=== PATIENT | male | born 1950 | race Caucasian/White ===

== ENCOUNTER → 2021-03-29 | Outpatient (CLI) | payer OTHER ==
[~2021-03-29] MED LIST: ASPIRIN325; BP MED; CRESTOR10 MG PO; IMDUR 30 MG TAB30 M1 PO
== END ==
LOC: SJCVC 14:36
PROVIDERS: ATTEND Internal Medicine
DX: R94.31 Abnormal electrocardiogram [ECG] [EKG] (principal); R07.2 Precordial pain; Z13.220 Encounter for screening for lipoid disorders

== ENCOUNTER → 2021-04-01 | Outpatient (CLI) | payer OTHER ==
[~2021-04-01] MED LIST changes: +ASA81BEC PO; +BENAZEPRIL HCL20 MG PO; +CLOPIDOGREL75 MG PO; +DAILY VITE1 EAC1 PO; +FISH OIL 1,001000 M3 PO; +GLUCOSAMINE &1 EACH PO; +METOPROLOL SUCC25 M1 PO; +NITROGLYCERIN0.4 MG SUBLING; +TURMERIC500 M2 PO; +ZANTAC-360 (FAM10 MG PO
== END ==
LOC: SJCVCIMAG 13:34
PROVIDERS: ATTEND Internal Medicine
DX: I08.3 Combined rheumatic disorders of mitral, aortic and tricuspid valves (principal); R07.2 Precordial pain; E78.5 Hyperlipidemia, unspecified; Z72.89 Other problems related to lifestyle; I10 Essential (primary) hypertension; I25.10 Atherosclerotic heart disease of native coronary artery without angina pectoris; R07.89 Other chest pain

== ENCOUNTER → 2021-04-02 | Outpatient (CLI) | payer OTHER ==
[~2021-04-02] VITALS: Ht 170.2 cm; Wt 72.0 kg
[2021-04-02 10:35] VITALS: BP 128/65
[2021-04-02 14:06] LABS: BE(vivo) -1.4 mmol/L (-2 to +3); BE(vivo) 1.5 mmol/L (-2 to +3); HCO3 25.3 mmol/L (22.0-26.0); HCO3 27.8 mmol/L (22.0-26.0); PCO2 50.4 mmHg (35.0-45.0); PCO2 VENOUS 50.8 mmHg (41.0-51.0); PO2 160.1 mmHg (80.0-100.0); PO2 VENOUS 48.2 mmHg (35.0-45.0); pH 7.359 (7.360-7.450)
[2021-04-02 17:48] LABS: URINE BILIRUBIN NEGATIVE (Negative); URINE BLOOD NEGATIVE (Negative); URINE CLARITY CLEAR; URINE COLOR YELLOW; URINE GLUCOSE-RANDOM* NEGATIVE (Negative); URINE KETONES NEGATIVE (Negative); URINE LEUKOCYTES-REFLEX NEGATIVE (Negative); URINE NITRITE-REFLEX NEGATIVE (Negative); URINE PROTEIN (DIPSTICK) NEGATIVE (Negative); URINE UROBILINOGEN 0.2 E.U./dl (0.2-1.0)
--- NOTE | 2021-04-03 07:57 | HC ---
[facility] [place] [address] CONSULTATION Name: JU[place] KAHN Room #: REG [facility].#: [id number] Admission: 04/02/21 Attend Phys: Stefan Jha MD, Discharge: Date of : 50 Report #: [id number] THIS REPORT FOR: cc: Miguel Lopez,Miguel Jones,[place] Garrett MD ~ DATE OF SERVICE: 04/02/2021 We were asked by Dr. Soliz to see the patient. HISTORY OF PRESENT ILLNESS: The patient is a 70-year-old patient of Dr. Jha with longstanding heart murmur. The patient presents with new onset angina with exertion. The patient has a history of coronary artery disease with stents placed at the center point approximately 2007. Current cardiac echo demonstrates an aortic valve area of 0.7 cm2 with a peak aortic gradient of 72 mmHg and a mean of 46. Left ventricular ejection fraction approximately 50%. Today arteriography demonstrated total occlusion of the right coronary artery. This appears to have been stented in the past. There was also in-stent stenosis and a LAD that measures approximately 60% and a 70% circumflex stenosis. No ventriculogram was done. History is significant for hypertension and hyperlipidemia. The patient denies diabetes mellitus. The patient has a history of Hodgkin's lymphoma, treated in 1982 with 47 radiation treatments. This appears to have been delivered to the neck. The patient also has had right carotid endarterectomy. The other focus of radiation was the left axilla. The patient states that the chest itself was not treated. The patient has also had multiple melanoma resections, but no current disease is now. ALLERGIES: THE PATIENT STATES HE IS ALLERGIC TO BENADRYL, WHICH CAUSES DIZZINESS. CURRENT MEDICATIONS: The patient takes Imdur, Crestor and Plavix was prescribed, but the patient states he is not taking it currently. SOCIAL HISTORY: The patient lives in [place]. He works as an independent long service. He is a never smoker. REVIEW OF SYSTEMS: GENERAL: Denies fever or chills. EYES: Denies vision change. The patient does not wear glasses. [facility] [address] [place] [address] CONSULTATION Name: JUAN KAHN ESEQUIEL Room #: REG [facility]#: [id number] Admission: 04/02/21 Attend Phys: Stefan Jha MD, Discharge: Date of : 50 Report #: [id number] HEENT: Denies headache, hearing problems. CARDIAC: As mentioned angina, also shortness of breath with exertion. RESPIRATORY: Denies cough, hemoptysis. GASTROINTESTINAL: Denies abdominal pain, nausea, vomiting. GENITOURINARY: Denies urgency, frequency. MUSCULOSKELETAL: No bone or joint pain. SKIN: No rash or infection. NEUROLOGIC: No motor or sensory dysfunction. HEMATOLOGIC: No bruisability or bleeding. ENDOCRINE: No goiter, no tremor. PHYSICAL EXAMINATION: GENERAL: The patient is lying in bed, status post cardiac catheterization. VITAL SIGNS: Blood pressure 132/64, heart rate 62. HEENT: No scleral icterus. No arcus. NECK: No mass. Bilateral transmitted bruits are audible. Skin in the right neck is somewhat leathery and right carotid incision is noted. CHEST: Clear to auscultation. HEART: Rhythm regular, loud aortic systolic murmur. ABDOMEN: Soft, no mass. EXTREMITIES: No clubbing, cyanosis or edema. No obvious varicosities. VASCULAR: 2+ dorsalis pedis pulses. SKIN: No rash or infection. NEUROLOGIC: No motor or sensory dysfunction. MUSCULOSKELETAL: No bone or joint asymmetry or deformity. PSYCHIATRIC: Oriented and appropriate shows insight into problem and is a pleasant fellow. ASSESSMENT AND PLAN: The patient has important aortic valve stenosis and 3-vessel coronary artery disease. I have recommended coronary artery bypass surgery. The risks and details of this were discussed. Risks include, but are not limited to bleeding, infection, anesthesia risks, heart and lung problems, stroke and . Options and alternatives were reviewed. Mechanical and biologic devices were compared and contrasted. The patient understands our recommendation for biological device and agrees. We will make sure the patient is off Plavix prior to surgery and schedule appropriately. <ELECTRONICALLY SIGNED> By: [place] Wei MD 04/03/21 0757 1421 0015 [place] Wei MD /nt
--- NOTE | 2021-04-03 08:57 | CATHLAB ---
[facility] [address] INVASIVE PROCEDURE REPORT Name: JUAN KAHN Room #: REG ERNEST[facility] Brown.#: [id number] Admission: 04/02/21 Attend Phys: Stefan Jha MD, Discharge: Date of : 50 Report #: [id number] THIS REPORT FOR: cc: Miguel Lopez Gregory DO Park, Jin S. MD ~ APPROVED REPORT Study performed: 04/02/2021 12:54:49 Patient Details Patient Status: Out-Patient Room #: The patient is a 70 year-old male Event Personnel Vasiliy Soliz Manager Gaming, Sumaya Lobo RTR, RELINER Monitor, Cassandra Darden RTR ScrubEnmanuel Dexter RN prepress specialist Performed Art Access - R femoral artery* Alvarez Access - R femoral vein Right and Left Heart Cath w/or w/o Coronarie [id number] [facility] Hemostasis w/ Mynx 48462 Initial Mod Sed Same Phys/QHP Gr5y 106875 83175 Mod Sed Same Phys/QHP Ea 275462 Indication Dyspnea, Unstable angina , Valvular heart disease, Chest pain, Murmur Risk Factors Peripheral Vascular Disease, HypercholesterolemiaPhysical Activity, Coronary Artery DiseaseHypertension Previous Procedures/Diagnoses Previous Vascular Surgery Procedure Narrative The Right Groin^ was infiltrated with subcutaneous anesthesia. A PINNACLE 6FR Sheath #[id number] sheath was inserted into the RFA. Coronary angiography was performed using coronary diagnostic catheters. The right coronary system was accessed and visualized with a JR4 catheter. The left coronary system was accessed and visualized with a JL4 catheter. The left ventricle was accessed and visualized with a 5FR AL1 #[id number] catheter. Left ventricular/Aortic Valve gradient assessed via catheter pullback. Pre-demployment femoral [facility] [address] [place] [address] INVASIVE PROCEDURE REPORT Name: [facility] Room #: REG [facility].#: [id number] Admission: 04/02/21 Attend Phys: Stefan Jha, Discharge: Date of : 50 Report #: [id number] angiogram was performed . Closure device was deployed with a 6 Fr MYNXGRIP 6/7F #[id number]. The patient tolerated the procedure well and there were no complications associated with the procedure. There was no hematoma. Intraoperative Conscious Sedation Sedation start time: 13:48 Case end Time: 14:46 Fentanyl 50 mcg Versed 1 mg Fluoro Time: 9.40 minutes Dose: DAP 4720.20 cGycm2 493 mGy Contrast Type and Amount: Omnipaque 95 ml Diagnostic Cath Left Main The left main artery has mild disease in the distal segment. LAD The LAD is a moderate-sized caliber vessel, traverses the anterior wall and wraps around the apex. The proximal segment is moderately calcified with severe disease. Diagonal 1 This is a small to moderate-sized caliber vessel, originates in the mid LAD segment. Circumflex The left circumflex artery is a severe stenosis in the proximal segment, 80% just after the takeoff of the first OM vessel. OM1 There is a moderate-sized caliber vessel with a severe proximal stenosis. OM2 This is a small to moderate-sized caliber vessel, patent with no flow limiting obstructions. Right Coronary The RCA is a dominant vessel with previous stents in the proximal and mid segments. There is a total occlusion at the ostium of the RCA. The distal branches are filled via collateral circulation from the left coronary artery. Left Ventriculography Left Ventriculography was not performed. Ejection Fraction was 55-60% based off patient's Echocardiogram. Hemodynamics The right atrial mean pressure is 10 mmHg. The right ventricular pressure is 35/6 mmHg. The pulmonary artery pressure is 36/14 mmHg with a mean of 23 mmHg. The mean pulmonary capillary wedge pressure is 14 mmHg. The aortic pressure is 141/65 mmHg with a mean of 94 mmHg. The left ventricular pressure is 176/9 mmHg with a mean of mmHg. The left ventricular end diastolic pressure is 20 mmHg. PaO2 saturation is 80.10 %. Arterial saturation is 97.90 %. The cardiac [facility] [address] [place] [address] INVASIVE PROCEDURE REPORT Name: JUAN KAHN ESEQUIEL Room #: REG Umberto#: [id number] Admission: 04/02/21 Attend Phys: Stefan Jha, Discharge: Date of : 50 Report #: [id number] output using the Lisa method is 6.84 L/min. The cardiac index using the Lisa method is 3.73 L/min/m2. The mean aortic valve gradient is 40.39 mmHg. The aortic valve area is 1.02 cm2. Conclusion 1. There is severe three-vessel coronary artery disease. 2. There is severe aortic stenosis. The LV systolic function is normal. 3. Right-sided hemodynamics as described. 4. Recommend cardiovascular consultation for CABG and aortic valve replacement. 5. Recommend aggressive risk factor management. <ELECTRONICALLY SIGNED> By: Vasiliy Soliz MD 04/03/2157 Vasiliy Soliz MD /INF
== END | disposition home or self-care (01) ==
LOC: CATH 09:22
PROVIDERS: Surgery Vascular Surgery; ATTEND Internal Medicine
DX: R07.9 Chest pain, unspecified (principal); I25.110 Atherosclerotic heart disease of native coronary artery with unstable angina pectoris; I35.0 Nonrheumatic aortic (valve) stenosis; R06.00 Dyspnea, unspecified; I10 Essential (primary) hypertension; E78.00 Pure hypercholesterolemia, unspecified; I73.9 Peripheral vascular disease, unspecified; E78.5 Hyperlipidemia, unspecified; I25.2 Old myocardial infarction; Z98.890 Other specified postprocedural states; Z79.899 Other long term (current) drug therapy; Z85.820 Personal history of malignant melanoma of skin; Z85.72 Personal history of non-Hodgkin lymphomas; Z88.8 Allergy status to other drugs, medicaments and biological substances

== ENCOUNTER → 2021-04-09 | Outpatient (CLI) | payer OTHER | LOC: SJCVCIMAG 06:55 | PROVIDERS: ATTEND Internal Medicine | DX: I65.23 Occlusion and stenosis of bilateral carotid arteries (principal); I35.8 Other nonrheumatic aortic valve disorders; I25.118 Atherosclerotic heart disease of native coronary artery with other forms of angina pectoris; I10 Essential (primary) hypertension; E78.00 Pure hypercholesterolemia, unspecified; E78.5 Hyperlipidemia, unspecified; R10.31 Right lower quadrant pain; I73.9 Peripheral vascular disease, unspecified; R60.0 Localized edema; Z95.1 Presence of aortocoronary bypass graft; Z72.89 Other problems related to lifestyle; Z79.899 Other long term (current) drug therapy; Z95.818 Presence of other cardiac implants and grafts; Z98.890 Other specified postprocedural states; Z88.8 Allergy status to other drugs, medicaments and biological substances ==

== ENCOUNTER → 2021-05-30 | Outpatient (CLI) | payer OTHER ==
[~2021-05-30] MED LIST changes: +ROSUVASTATIN CA20 MG PO
[2021-05-30 13:49] LABS: ABSOLUTE NEUTROPHILS 4.2 thou/uL (1.4-8.2); BASOPHILS 1.2 % (0.0-2.0); EOSINOPHILS 4.5 % (0.0-3.0); HEMATOCRIT 37.5 % (42.0-52.0); HEMOGLOBIN 12.7 gm/dL (14.0-18.0); LYMPHOCYTES 30.9 % (24.0-44.0); MCH 32.2 pg (26.0-34.0); MCV 94.7 fL (80.0-100.0); MONOCYTES 10.9 % (1.0-8.0); PLATELET COUNT 293 thou/uL (150-400); POLYS 52.5 % (36.0-66.0); RBC 3.96 mil/uL (4.50-6.00)
[2021-05-30 14:03] LABS: APTT 28.8 Seconds (24.5-32.8); INR 0.94; PROTIME 10.3 Seconds (10.5-12.1)
[2021-05-30 14:05] LABS: ALBUMIN 3.6 g/dL (3.4-5.0); CALCIUM 9.3 mg/dL (8.5-10.1); POTASSIUM 4.2 mmol/L (3.5-5.1); TOTAL BILIRUBIN 0.4 mg/dL (0.2-1.0); TOTAL PROTEIN 7.5 g/dL (6.4-8.2)
[2021-05-30 14:14] LABS: URINE BILIRUBIN NEGATIVE (Negative); URINE BLOOD NEGATIVE (Negative); URINE CLARITY CLEAR; URINE COLOR YELLOW; URINE GLUCOSE-RANDOM* NEGATIVE (Negative); URINE KETONES NEGATIVE (Negative); URINE LEUKOCYTES-REFLEX NEGATIVE (Negative); URINE NITRITE-REFLEX NEGATIVE (Negative); URINE PROTEIN (DIPSTICK) NEGATIVE (Negative); URINE SPECIFIC GRAVITY 1.015 (1.005-1.035); URINE UROBILINOGEN 0.2 E.U./dl (0.2-1.0)
[2021-05-31 04:06] LABS: GLYCOHEMOGLOBIN (HGB A1C) 5.4 % (4.8-5.6)
--- NOTE | 2021-05-31 07:06 | EKG ---
[place] [address] [address] [facility] [address] [place] [address] ELECTROCARDIOGRAM REPORT Name: JUAN KAHN [id number] Admission: 05/30/21 Attend Phys: [place] Wei MD Discharge: Date of : 50 Report #: [id number] [facility] Test Date: 2021-05-30 Test Time: 13:44:05 Pat Name: JUAN KAHN Department: Room: Gender: Assembler Camper: Abhijit ELIZONDO : 1950 Requested By: [place] Wei Order Number: [id number] MD: Stefan Jha Measurements Intervals [place] Rate: 71 P: 65 [place]: 163 QRS: 34 QRSD: 116 T: 0 QT: 481 QTc: 523 Interpretive Statements Sinus rhythm Probable left atrial enlargement LVH with secondary repolarization abnormality Inferior infarct, age indeterminate No previous ECG available for comparison Electronically Signed On 05-31-2021 7:06:09 PROFESSOR OF ART by Stefan Jha [email or web address] <ELECTRONICALLY SIGNED> By: Stefan Jha MD, [facility] 05/31/21 0706 1344 1344 Stefan Jha MD, FACC /EPI
== END | disposition home or self-care (01) ==
LOC: PAC 12:11
PROVIDERS: ATTEND Surgery Vascular Surgery
DX: R94.31 Abnormal electrocardiogram [ECG] [EKG] (principal); F03.90 Unspecified dementia, unspecified severity, without behavioral disturbance, psychotic disturbance, mood disturbance, and anxiety; I25.10 Atherosclerotic heart disease of native coronary artery without angina pectoris; R07.9 Chest pain, unspecified

== ENCOUNTER 2021-06-11 09:41 | Inpatient (IN) | payer OTHER ==
[~2021-06-11] VITALS: Ht 177.8 cm; Wt 71.6 kg
[2021-06-20] VITALS (35 sets, daily range): BP systolic 85–149; BP diastolic 49–76
[2021-06-20 13:43] LABS: HEMATOCRIT 24.9 % (42.0-52.0); HEMOGLOBIN 8.3 gm/dL (14.0-18.0); MCH 31.2 pg (26.0-34.0); MCHC 33.2 g/dL (28.0-37.0); RBC 2.65 mil/uL (4.50-6.00); RDW 13.2 % (10.5-14.5); WBC 14.8 thou/uL (4.0-11.0)
[2021-06-20 14:03] LABS: APTT 30.5 Seconds (24.5-32.8); INR 1.47; PROTIME 15.7 Seconds (10.5-12.1)
[2021-06-20 14:35] LABS: POC BE 4 mmol/L (-2.0 to +3.0); POC CA IONIZED 4.1 mg/dL (4.5-5.3); POC GLUCOSE 131 mg/dL (70-99); POC HCO3 26.2 mmol/L (22.0-26.0); POC HEMOGLOBIN 9.5 g/dL (14.0-18.0); POC POTASSIUM 4.6 mmol/L (3.5-5.1); POC SODIUM 140 mmol/L (136-145); POC pCO2 31.1 mmHg (35.0-45.0); POC pH 7.533 (7.360-7.450)
[2021-06-20 14:35] LABS: POC BE 4 mmol/L (-2.0 to +3.0); POC CA IONIZED 4.5 mg/dL (4.5-5.3); POC GLUCOSE 168 mg/dL (70-99); POC HCO3 26.7 mmol/L (22.0-26.0); POC HEMOGLOBIN 9.2 g/dL (14.0-18.0); POC POTASSIUM 4.4 mmol/L (3.5-5.1); POC SODIUM 140 mmol/L (136-145); POC pCO2 31.3 mmHg (35.0-45.0)
[2021-06-20 14:35] LABS: POC BE 2 mmol/L (-2.0 to +3.0); POC CA IONIZED 4.8 mg/dL (4.5-5.3); POC GLUCOSE 123 mg/dL (70-99); POC HCO3 26.4 mmol/L (22.0-26.0); POC HEMOGLOBIN 11.2 g/dL (14.0-18.0); POC SODIUM 140 mmol/L (136-145); POC pCO2 41.7 mmHg (35.0-45.0)
[2021-06-20 14:35] LABS: POC BE 5 mmol/L (-2.0 to +3.0); POC CA IONIZED 4.5 mg/dL (4.5-5.3); POC GLUCOSE 152 mg/dL (70-99); POC HCO3 28.1 mmol/L (22.0-26.0); POC HEMOGLOBIN 9.9 g/dL (14.0-18.0); POC POTASSIUM 4.3 mmol/L (3.5-5.1); POC SODIUM 141 mmol/L (136-145); POC pCO2 34.9 mmHg (35.0-45.0); POC pH 7.514 (7.360-7.450)
[2021-06-20 14:35] LABS: POC BE 5 mmol/L (-2.0 to +3.0); POC CA IONIZED 4.9 mg/dL (4.5-5.3); POC GLUCOSE 107 mg/dL (70-99); POC HCO3 28.2 mmol/L (22.0-26.0); POC HEMOGLOBIN 11.2 g/dL (14.0-18.0); POC POTASSIUM 3.9 mmol/L (3.5-5.1); POC SODIUM 139 mmol/L (136-145); POC pCO2 38.2 mmHg (35.0-45.0); POC pH 7.477 (7.360-7.450)
[2021-06-20 14:36] LABS: POC BE 2 mmol/L (-2.0 to +3.0); POC CA IONIZED 4.7 mg/dL (4.5-5.3); POC GLUCOSE 158 mg/dL (70-99); POC HCO3 26.6 mmol/L (22.0-26.0); POC HEMOGLOBIN 9.5 g/dL (14.0-18.0); POC POTASSIUM 3.5 mmol/L (3.5-5.1); POC SODIUM 142 mmol/L (136-145); POC pCO2 41.6 mmHg (35.0-45.0); POC pH 7.414 (7.360-7.450)
[2021-06-20 14:36] LABS: POC BE -2 mmol/L (-2.0 to +3.0); POC CA IONIZED 5.1 mg/dL (4.5-5.3); POC GLUCOSE 120 mg/dL (70-99); POC HCO3 22.8 mmol/L (22.0-26.0); POC HEMOGLOBIN 9.9 g/dL (14.0-18.0); POC POTASSIUM 3.3 mmol/L (3.5-5.1); POC SODIUM 143 mmol/L (136-145); POC pCO2 36.7 mmHg (35.0-45.0); POC pH 7.402 (7.360-7.450)
[2021-06-20 14:36] LABS: POC BE 3 mmol/L (-2.0 to +3.0); POC CA IONIZED 4.5 mg/dL (4.5-5.3); POC GLUCOSE 130 mg/dL (70-99); POC HCO3 26.6 mmol/L (22.0-26.0); POC HEMOGLOBIN 8.5 g/dL (14.0-18.0); POC POTASSIUM 3.6 mmol/L (3.5-5.1); POC SODIUM 140 mmol/L (136-145); POC pCO2 36.1 mmHg (35.0-45.0); POC pH 7.475 (7.360-7.450)
[2021-06-20 14:36] LABS: POC BE 4 mmol/L (-2.0 to +3.0); POC CA IONIZED 4.6 mg/dL (4.5-5.3); POC GLUCOSE 157 mg/dL (70-99); POC HCO3 27.2 mmol/L (22.0-26.0); POC HEMOGLOBIN 8.8 g/dL (14.0-18.0); POC POTASSIUM 3.7 mmol/L (3.5-5.1); POC SODIUM 141 mmol/L (136-145); POC pCO2 36.4 mmHg (35.0-45.0); POC pH 7.482 (7.360-7.450)
[2021-06-20 14:36] LABS: POC BE 3 mmol/L (-2.0 to +3.0); POC CA IONIZED 5.4 mg/dL (4.5-5.3); POC GLUCOSE 127 mg/dL (70-99); POC HCO3 25.8 mmol/L (22.0-26.0); POC HEMOGLOBIN 7.5 g/dL (14.0-18.0); POC POTASSIUM 3.2 mmol/L (3.5-5.1); POC SODIUM 140 mmol/L (136-145); POC pCO2 31.9 mmHg (35.0-45.0); POC pH 7.516 (7.360-7.450)
[2021-06-20 14:36] LABS: POC BE 3 mmol/L (-2.0 to +3.0); POC CA IONIZED 4.6 mg/dL (4.5-5.3); POC GLUCOSE 146 mg/dL (70-99); POC HCO3 26.8 mmol/L (22.0-26.0); POC HEMOGLOBIN 8.8 g/dL (14.0-18.0); POC POTASSIUM 3.6 mmol/L (3.5-5.1); POC SODIUM 142 mmol/L (136-145); POC pCO2 36.7 mmHg (35.0-45.0); POC pH 7.472 (7.360-7.450)
[2021-06-20 15:07] LABS: HEMATOCRIT 27.9 % (42.0-52.0); HEMOGLOBIN 9.1 gm/dL (14.0-18.0); MCH 30.7 pg (26.0-34.0); MCHC 32.5 g/dL (28.0-37.0); MCV 94.5 fL (80.0-100.0); RBC 2.95 mil/uL (4.50-6.00); RDW 13.2 % (10.5-14.5); WBC 17.7 thou/uL (4.0-11.0)
[2021-06-20 15:21] LABS: BE(vivo) -3.5 mmol/L (-2 to +3); HCO3 19.7 mmol/L (22.0-26.0); PCO2 29.2 mmHg (35.0-45.0); PO2 94.1 mmHg (80.0-100.0); pH 7.447 (7.360-7.450); sO2 97.6 % (92.0-98.0)
[2021-06-20 15:27] LABS: CALCIUM 8.5 mg/dL (8.5-10.1); CREATININE 0.9 mg/dL (0.7-1.3); MAGNESIUM 2.3 mg/dL (1.8-2.4); POTASSIUM 3.6 mmol/L (3.5-5.1)
[2021-06-20 15:30] LABS: APTT 32.2 Seconds (24.5-32.8); INR 1.19; PROTIME 12.9 Seconds (10.5-12.1)
--- NOTE | 2021-06-20 17:13 | NUR ---
PT ARRIVED FROM THE OR AT 1450 W/ OR TEAM ESCORT, AT THE TIME OF ARRIVAL ALL GTT ARE OFF THE PATIENT, PT'S BELONGINGS IN THE PT'S CLOSET, NO ITEM OF SIGNIFICANT VALUE NOTED SIMPLY PLAIN CLOTHING, PT ARRIVED W/O SEDATION, PT IS CALM AND ALERT AND WAKING UP SLOWLY, ALL MEDICATIONS ADMINISTERED IN TIMELY MANNER, PT'S CALLED AND WAS REPORTED TO THE RN BY ANOTHER STAFF THAT SHE WILL ARRIVE TOMORROW MORNING. GOAL FOR THE EVENING IS TO AWAKEN THE PATIENT AND SAFELY EXTUBATE WHEN DEEMED APPROPERIATE.
[2021-06-20 19:14] LABS: CALCIUM 8.3 mg/dL (8.5-10.1); CREATININE 1.1 mg/dL (0.7-1.3); POTASSIUM 3.8 mmol/L (3.5-5.1)
[2021-06-20 23:35] LABS: BE(vivo) -4.8 mmol/L (-2 to +3); HCO3 20.4 mmol/L (22.0-26.0); PCO2 38.1 mmHg (35.0-45.0); PO2 124.1 mmHg (80.0-100.0); pH 7.346 (7.360-7.450); sO2 98.3 % (92.0-98.0)
[2021-06-21] VITALS (28 sets, daily range): BP systolic 78–126; BP diastolic 49–72
--- NOTE | 2021-06-21 02:23 | NUR ---
2300: Pt placed on CPAP, doing well at this time 2345: Pt did well on CPAP trial, met extubation parameters. Pt extubated at 2345 and placed on 5 L [place] 0000: Pt heart rate dropped to 57-58, SBP <90; Amiodorone and Cardene turned off 0200: SBP 88-90 per arterial line, CVP 16. 250 cc of 5% albumin given.
[2021-06-21 06:15] LABS: HEMATOCRIT 29.8 % (42.0-52.0); HEMOGLOBIN 9.7 gm/dL (14.0-18.0); MCH 30.9 pg (26.0-34.0); MCHC 32.6 g/dL (28.0-37.0); MCV 94.8 fL (80.0-100.0); RBC 3.15 mil/uL (4.50-6.00); RDW 13.4 % (10.5-14.5); WBC 12.2 thou/uL (4.0-11.0)
[2021-06-21 06:45] LABS: CALCIUM 8.2 mg/dL (8.5-10.1); CREATININE 1.3 mg/dL (0.7-1.3); MAGNESIUM 2.4 mg/dL (1.8-2.4); POTASSIUM 4.2 mmol/L (3.5-5.1)
--- NOTE | 2021-06-21 07:41 | EKG ---
[address] [place] [address] ELECTROCARDIOGRAM REPORT Name: JUAN KAHN ESEQUIEL Room #: 250-P ADM IN M.R.#: [id number] Admission: 06/20/21 Attend Phys: [place] Wei MD Discharge: Date of : 50 Report #: [id number] [facility] Test Date: 2021-06-20 Test Time: 17:20:06 Pat Name: JUAN KAHN Department: Room: 250 Gender: M Log Preparer: FSCHWALBE : 1950 Requested By: Wicho Bailey Order Number: [id number] MD: Stefan Jha Measurements Intervals [place] Rate: 73 P: 64 [place]: 158 QRS: 68 QRSD: 100 T: 11 QT: 433 QTc: 478 Interpretive Statements Sinus rhythm Borderline prolonged QT interval Compared to ECG 05/30/2021 13:44:05 Left ventricular hypertrophy no longer present Early repolarization no longer present Electronically Signed On 06-21-2021 7:41:24 PATHOLOGY SECRETARY/TRANSCRIPTIONIST by Stefan Jha [email or web address] <ELECTRONICALLY SIGNED> By: Stefan Jha MD, [facility] 06/21/21 0741 1720 1720 [place] Jha MD, FACC /EPI
--- NOTE | 2021-06-21 07:44 | EKG ---
[address] [place] [address] ELECTROCARDIOGRAM REPORT Name: JUAN KAHN Room #: 250-P ADM IN M.R.#: [id number] Admission: 06/20/21 Attend Phys: [place] Wei MD Discharge: Date of : 50 Report #: [id number] [facility] Test Date: 2021-06-21 Test Time: 06:53:43 Pat Name: JUAN KAHN Department: Room: 250 P Gender: M Board Hammer Operator: TIMMY : 1950 Requested By: Wicho Bailey Order Number: [id number] MD: Stefan Jha Measurements Intervals [place] Rate: 67 P: 74 [place]: 149 QRS: 68 QRSD: 100 T: 37 QT: 470 QTc: 497 Interpretive Statements Sinus rhythm J point elevation precordail leads Baseline wander in lead(s) V5 Compared to ECG 06/20/2021 17:20:06 No significant changes Electronically Signed On 06-21-2021 7:44:35 THIN FILM TECHNICIAN by Stefan Jha [email or web address] <ELECTRONICALLY SIGNED> By: Stefan Jha MD, [facility] 06/21/21 0744 0653 0653 Stefan Jha MD, FACC /EPI
--- NOTE | 2021-06-21 08:17 | NUR ---
Nutrition: POD 1 CABG x 3, AVR. Consult received. RD to followup when out of ICU and closer to D/C to determine education needs.
[2021-06-22] VITALS (65 sets, daily range): BP systolic 78–139; BP diastolic 38–73
[2021-06-22 04:16] LABS: HEMATOCRIT 27.7 % (42.0-52.0); HEMOGLOBIN 8.9 gm/dL (14.0-18.0); MCH 30.9 pg (26.0-34.0); MCHC 32.3 g/dL (28.0-37.0); MCV 95.7 fL (80.0-100.0); RBC 2.89 mil/uL (4.50-6.00); RDW 13.5 % (10.5-14.5); WBC 16.3 thou/uL (4.0-11.0)
[2021-06-22 04:42] LABS: CALCIUM 8.5 mg/dL (8.5-10.1); CREATININE 1.4 mg/dL (0.7-1.3); POTASSIUM 3.8 mmol/L (3.5-5.1)
--- NOTE | 2021-06-22 17:03 | O ---
[facility] [place] [address] OPERATIVE REPORT Name: JUAN KAHN Room #: 250-P [facility] IN M.R.#: [id number] Admission: 06/20/21 Attend Phys: [place] Wei MD Discharge: Date of : 50 Report #: [id number] THIS REPORT FOR: cc: Miguel Lopez,Miguel Jones,[place] Garrett MD ~ DATE OF SERVICE: 06/20/2021 PREOPERATIVE DIAGNOSIS: Coronary artery disease and aortic valve stenosis. POSTOPERATIVE DIAGNOSIS: Coronary artery disease and aortic valve stenosis. OPERATION: Aortic valve replacement with 21 mm Yvon-Medina bioprosthesis and coronary artery bypass x3 including left internal mammary artery to left anterior descending artery, saphenous vein to posterior descending artery in a Y fashion with the other branch of the Y going to marginal artery and endoscopic harvest, left greater saphenous vein. SURGEON: [place] Wei MD SUPERVISOR EXTRUDING DEPARTMENT: LONG Patel. ANESTHESIA: General. INDICATIONS: The patient is a 70-year-old with calcific aortic stenosis and coronary artery disease. The patient presents with exertional angina. Catheterization demonstrates a high-grade LAD and marginal disease as well as a total occlusion of the right coronary. Aortic valve area was estimated to be 0.7 cm2 by echo. FINDINGS AND TECHNIQUE: After general anesthesia was established, saphenous vein was harvested using an endoscopic approach and prepared for use as a conduit. Exposure was obtained through median sternotomy. Left internal mammary artery was harvested from chest wall. Pericardial well was made. Cannulation sutures were placed. Heparin was given. Aorta was cannulated. Right atrium was cannulated. Cardioplegia needle was positioned in the aortic root. Retrograde cardioplegic catheter was placed to coronary sinus. Cardiopulmonary bypass was established. Aorta was cross-clamped. Antegrade and then retrograde cardioplegia were given. Ice was poured into the pericardial well. The heart was stopped. During electromechanical arrest, the distal anastomoses were performed. An end-to-side anastomosis was made between vein and the largest of the vessels on the diaphragmatic surface, which was the posterior descending. [facility] [address] [place] [address] OPERATIVE REPORT Name: JUAN KAHN ESEQUIEL Room #: 250-P [facility] IN M.R.#: [id number] Admission: 06/20/21 Attend Phys: [place] Wei MD Discharge: Date of : 50 Report #: [id number] cardioplegia was given. Separate segment of vein was sewn in end-to-side fashion to the large marginal artery. Cold cardioplegia was given. Left internal mammary artery was sewn in end-to-side fashion to the left anterior descending artery. Patency of this vessel was checked with the temperature technique and the Doppler. Cold cardioplegia was given. At this point, the aortic valve was replaced. Cardioplegia was given every 15 minutes during this. The aorta itself was very atheromatous and an incision was made approximately 15 mm above the right coronary ostium. The valve was highly calcified. The valve leaflets were excised and the annulus was decalcified. The annulus was riddled with calcium. The cavity of the ventricle was irrigated to remove any loose debris. Interrupted Ethibond sutures were placed through the [place] annulus and then through the sewing ring of a 21 mm device chosen for both annular and the patient's size. The device was lowered into place and sutures were secured with the Cor-Knot device. The aortotomy was closed in 2 layers. Cold cardioplegia was given. One proximal anastomosis was performed between the vein to the marginal artery and the aorta. At this point, warm retrograde cardioplegia was given followed by warm continuous blood through the coronary sinus. When this infusion was complete, crossclamp was removed. De-airing maneuvers were performed. The proximal end of the vein to the posterior descending was then sewn to the side of the vein to the marginal. One proximal was done because of limited area due to calcific atherosclerosis. When all of the proximal anastomoses were complete, flow was reestablished. The anastomoses were inspected and found to be satisfactory. As the patient warmed, cardiac activity resumed. Chest tubes and pacing wires were placed. A marker was placed around the proximal anastomosis. When the patient was warm, he was weaned from cardiopulmonary bypass. Venous cannula was removed. Protamine was given, the aortic cannula was removed. Flows were measured in the bypass grafts. When hemostasis was satisfactory, chest was irrigated with antibiotic solution and then closed in the usual fashion. The patient was taken to the Intensive [address] [address] OPERATIVE REPORT Name: JUAN KAHN ESEQUIEL Room #: 250-P [facility] IN M.R.#: [id number] Admission: 06/20/21 Attend Phys: [place] Wei MD Discharge: Date of : 50 Report #: [id number] Care Unit in good condition having tolerated the procedure well. All counts were reported as correct. <ELECTRONICALLY SIGNED> By: [place] Wei MD 06/22/21 1703 1849 1907 [place] Wei MD /nt
--- NOTE | 2021-06-22 19:07 | NUR ---
PT TOLERATED SITTING IN THE CHAIR FOR 7 HOURS TODAY. PT WAS STARTED ON NS @ 100 FOR INADEQUATE FLUID INTAKE AND LOW BP THIS MORNING. SINCE STARTING FLUIDS, PT BP HAS REMAINED STABLE AND WITHIN NORMAL LIMITS. PT HAS C/O MINIMAL PAIN THROUGHOUT THE DAY, RELIEVED BY MEDICATION AND SLEEPING. AZRA WAS DC'D AROUND 1800 AND PT HAS NOT URINATED YET. URINAL IS AT BEDSIDE AND PT WAS EDUCATED ON ITS USE. PT APPETITE IS POOR, BUT HE HAS REQUESTED AND ATE VANILLA PUDDING AND ICE CREAM THROUGHOUT THE DAY. PT HAS APPLESAUCE AT BEDSIDE IN PLACE OF DINNER. WILL CONTINUE TO FOLLOW PLAN OF CARE.
[2021-06-23] VITALS (36 sets, daily range): BP systolic 84–156; BP diastolic 47–78
--- NOTE | 2021-06-23 13:22 | NUR ---
PT DC'D FROM PLEURAL CHEST TUBE, PACER WIRES, RIGHT IJ INTRODUCER, AND RIGHT RADIAL ARTERIAL LINE THIS MORNING AND AFTERNOON. PT HAS VERY POOR APPETITE AND HAS HAD MINIMAL TO EAT THUS FAR TODAY. PT STILL C/O DIFFICULTY WITH CLEARING SECRETIONS. RT AND THIS RN HAVE EDUCATED PT ON THE USE OF FLUTTER VALVE AT PT'S BEDSIDE TO AID IN CLEARANCE. PT'S DAUGHTER REKHA CALLED AT 0745 THIS MORNING AND THIS RN UPDATED HER ON HIS STATUS AND PLAN OF CARE. PT'S SIGNIFICANT OTHER WAS AT BEDSIDE MOST OF THE MORNING AND AFTERNOON AND ASSISTED WITH TRANSFERRING PT TO CCU AROUND NOON. PT AND S/O WERE GRATEFUL FOR THE CARE RECEIVED IN THIS ICU.
--- NOTE | 2021-06-23 18:18 | NUR ---
PT TO THEN UNIT FROM THE ICU - POST OP OPEN HEART. ORIENTED TO ROOM AND BEDSPACE. PROVIDED WITH RENEA CÁRDENAS PER PT REQUEST. PT WITH MOIST COUGH NOT PRODUCING ANY SPUTUM. PT SEEN BY [facility] THERAPY - UP TO THE BATHROOM. MEDS PER SEP - NO CO'S OF PAIN OR NAUSEA - APPITITE REMAINS POOR. NO CO'S AT THE PRESENT TIME.
[2021-06-24] VITALS: BP 132/73
--- NOTE | 2021-06-24 02:26 | NUR ---
PT RESTING QUIETLY IN ROOM THRU THE NOC, VSS, ENCOURAGED DB AND IS, CONGESTED COUGH, PO MEDS WITH PUDDING, PRN PAIN MEDS GIVEN CHARTED FOR C/O BACK PAIN REPOSITONED WITH PILLOWS FREQUENTLY, VOIDING DRK TRUDY URINE PER URINAL, WILL CON'T TO MONITOR PER PPOC.
[2021-06-24 03:53] LABS: HEMATOCRIT 24.6 % (42.0-52.0); HEMOGLOBIN 8.2 gm/dL (14.0-18.0); MCH 31.5 pg (26.0-34.0); MCHC 33.3 g/dL (28.0-37.0); MCV 94.6 fL (80.0-100.0); RBC 2.6 mil/uL (4.50-6.00); RDW 13.3 % (10.5-14.5); WBC 11.8 thou/uL (4.0-11.0)
[2021-06-24 04:09] LABS: CALCIUM 8.7 mg/dL (8.5-10.1); CREATININE 1.1 mg/dL (0.7-1.3); POTASSIUM 4.3 mmol/L (3.5-5.1)
[2021-06-24 05:06] VITALS: BP 125/56
[2021-06-24 07:20] VITALS: BP 133/79
--- NOTE | 2021-06-24 09:01 | EKG ---
[place] [address] [employer] [facility] [address] ELECTROCARDIOGRAM REPORT Name: JUAN KAHN Room #: 212-P ADM IN M.R.#: [id number] Admission: 06/20/21 Attend Phys: [place] Wei MD Discharge: Date of : 50 Report #: [id number] [facility] Test Date: 2021-06-24 Test Time: 08:16:46 Pat Name: JUAN KAHN Department: Room: 212 P Gender: M Centrifugal Screen Tender: BLACK : 1950 Requested By: Wicho Bailey Order Number: [id number] MD: Sunny Cevallos Measurements Intervals [place] Rate: 79 P: 45 [place]: 160 QRS: 21 QRSD: 104 T: -19 QT: 396 QTc: 455 Interpretive Statements Sinus rhythm Inferoposterior infarct, age indeterminate Baseline wander in lead(s) V3 Compared to ECG 06/21/2021 06:53:43 Inferior Q waves more prominent ST (T wave) deviation no longer present Electronically Signed On 06-24-2021 9:01:42 GUEST ATTENDANT by Sunny Cevallos [email or web address] <ELECTRONICALLY SIGNED> By: Sunny Cevallos MD, [facility] 06/24/21900 5 5 Sunny Cevallos MD, [facility] /EPI
[2021-06-24 11:00] VITALS: BP 114/62
[2021-06-24 14:21] LABS: BF NUCLEATED CELLS 1300 /mm3
[2021-06-24 14:23] LABS: COLOR RED; TOTAL VOLUME 60 mL
[2021-06-24 14:24] LABS: CLARITY CLOUDY
[2021-06-24 15:20] VITALS: BP 103/56
[2021-06-24 16:12] LABS: BF MACROPHAGE 26 %; BF NEUTROPHILS 70 %; SOURCE CHEST
--- NOTE | 2021-06-24 16:43 | NUR ---
PATIENT ADMITTED FOR AORTIC VALVE REPLACEMENT, CABG X 3. CM SPOKE WITH CARE TEAM AND REVIEWED PTS CHART. PT APPEARED A&OX3. CM MET WITH PT THIS DAY. CM ROLE INTRODUCED. PT REPORTED HE LIVES IN HIS "BARN" OR APARTMENT ALONE. HE REPORTS HE HAS NO STEPS INSIDE OR OUTSIDE THE APARTMENT. PT REPORTS HE IS INDEPENDENT WITH ALL MOBILITY AND ADLS. HE REPORTS HE IS RETIRED BUT MOWS 20+ YARDS AND HOPING TO GO BACK TO WORK IN OCTOBER. HE REPORTS NO HH OR OTHER THERAPY FOREIGN STUDENT ADVISER. PT REPORTS HIS GOAL IS TO RETURN TO HIS APARTMENT WHEN MEDICALLY STABLE. HE REPORTS HIS FRIEND AKASH WILL RETURN HOME WITH ON DC AND ASSIST HIM WHEN HE RETURNS HOME SHOULD HE NEED IT. HE REPORTS SHE WILL STAY LONG NEEDED. CM FOLLOWING REGARDING DC PLANNING.
--- NOTE | 2021-06-24 19:41 | NUR ---
Pt was A&0x4, VS stable and afebrile throughout shift. Pt went down for thoracentesis and reported feeling that he was able to breath better afterwards. Pt's pain is well controlled and pt reported only having minimal pain r/t to chronic back pain. Pt worked with cardiac rehab, PT and OT today and was able to sit in chair for an hour. No current concerns. Continue to monitor.
[2021-06-24 20:00] VITALS: BP 106/59
[2021-06-25 04:00] VITALS: BP 118/59
--- NOTE | 2021-06-25 05:22 | NUR ---
ASSESSMENTS CHARTED, MEDS CHARTED GIVEN. PATIENT BACK IN BED AT START OF SHIFT. ALERT AND ORIENTED, STERNAL INCISION TO WOUND VAC. HAD THORACENTESIS YESTERDAY. LEFT FOOT SWOLLEN. VEIN HARVEST SITES HAVE ORIGINAL SURGICAL DRESSINGS. ON 3 LITERS NC. C/O CHRONIC BACK PAIN.
[2021-06-25 07:20] VITALS: BP 135/71
[2021-06-25 11:10] VITALS: BP 117/64
[2021-06-25 12:10] LABS: SOURCE CHEST
[2021-06-25 15:50] VITALS: BP 116/59
--- NOTE | 2021-06-25 18:41 | NUR ---
Pt was A&0x4, VS stable, afebrile throughout shift. Pt worked with PT today and sat in chair for 3 hours. Pt was able to sit for 3 hours on RA; PT said he still needs 3L O2 when ambulating. Pts pain is well controlled. Incisions are clean, dry and intact. No current concerns. Continue to monitor.
[2021-06-25 19:09] VITALS: BP 108/62
--- NOTE | 2021-06-26 03:27 | NUR ---
PT HAS BEEN RESTING IN NO ACUTE DISTRESS.A/OX4.VSS.C/O BACK PAIN THAT WAS CONTROLLED BY PAIN MEDS PRN.S/P CABG W/AVR.SURGICAL STERNAL INCISION WITH WOUND VAC DRESSING,CDI.WOUND VAC TO SUCTION 125MMHG.LEFT LEG HARVEST SITE ETHAN,NO DRAINAGE OR S/SX OF INFECTION NOTED.POSSIBLE DISCHARGE TO HOME IN 1-2 DAYS.WILL CONT TO MONITOR PER POC.
[2021-06-26 04:15] VITALS: BP 126/76
[2021-06-26 07:15] VITALS: BP 113/70
[2021-06-26] MEDS ORDERED: PACERONE 200 M200 M1 PO (09:23)
[2021-06-26 10:23] LABS: HEMOGLOBIN 8.2 gm/dL (14.0-18.0); MCH 32.2 pg (26.0-34.0); MCHC 33.9 g/dL (28.0-37.0); MCV 94.8 fL (80.0-100.0); RBC 2.54 mil/uL (4.50-6.00); RDW 13.2 % (10.5-14.5); WBC 9.9 thou/uL (4.0-11.0)
[2021-06-26] MEDS ORDERED: FERREX 150 PLU1 EAC1 PO (11:07)
[2021-06-26 11:20] VITALS: BP 137/62
--- NOTE | 2021-06-26 13:08 | PATH ---
[facility] [address] [place] [address] PATHOLOGY RPT PROCEDURE Name: AMBROSIO HERRERA ESEQUIEL Room #: 212-P ADM IN M.R.#: [id number] Admission: 06/20/21 Date of : 50 Discharge: Report #: [id number] Path Case #: [id number] [facility] Accession Number: [id number] . 01 Material submitted: . PART A: neck - ANTERIOR CERVICAL LYMPH NODE. Modifiers: anterior PART B: aortic body - AORTIC VALVE . 01 Clinical history: . SEVERE AORTIC STENOSIS ENDOSCOPIC VEIN HARVEST BIOPSY LYMPH NODE PREVENA APPLICATION WOUND VAC PLACEMENT CORONARY ARTERY DISEASE . 02 Diagnosis: A. Soft tissue (anterior cervical lymph node): - Vascularized fibroadipose tissue with small lymphangiectasia identified. . B. Aortic valve leaflets (valve replacement): - Aortic valve leaflets with dense calcified atheromatous change. . (LYNETTE:malik; 06/25/2021) JANENE 06/25/2021 1206 Local . 02 Electronically signed: . Fracisco Malone MD, Pathologist NPI- [id number] . 01 Gross description: . A. The specimen is received in formalin, labeled "Ambrosio Herrera, anterior cervical node". Received is a segment of pink-muñoz lobulated tissue measuring 0.8 x 0.7 x 0.4 cm in greatest dimensions. The specimen is bisected and entirely submitted in cassette A1. . B. The specimen is received in formalin, labeled "Ambrosio Herrera, aortic valve". Received are multiple segments of pale castellon, moderately calcified vascular tissue measuring 3.3 x 3.4 x 0.6 cm in aggregate dimensions. The specimen is submitted representatively in cassette B1, following light decalcification. (CAA; 06/21/2021) QA/[facility] 06/21/2021 1155 Local . 02 Pathologist provided ICD-10: I25.10 . [address] [address] PATHOLOGY RPT PROCEDURE Name: AMBROSIO HERRERA Room #: 212-P [facility] IN ..#: [id number] Admission: 06/20/21 Date of : 50 Discharge: Report #: [id number] Path Case #: [id number] [facility] . [id number], [id number], [id number] Specimen Comment: A courtesy copy of this report has been sent to [phone] Specimen Comment: [phone] Specimen Comment: Report sent to / DR GROSSMAN Specimen Comment: A duplicate report has been generated due to demographic updates. Performed at: 01 [facility] [address] [id number] MD Gus Adams MD Phone: [phone] Performed at: 02 [facility] [address] [id number] MD Fracisco Malone MD Phone: [phone]
[2021-06-26 13:32] VITALS: BP 137/62
--- NOTE | 2021-06-26 14:27 | NUR ---
ASSESSMENT CHARTED - MEDS PER PRATIBHA - YAZMIN DIET AND FLUIDS. NO CO'S OF PAIN OR NAUSEA. PT SEEN BY [facility] THIS AM -- AMBULATED IN THE [facility]. WOUND VAC REMAINS INSITU. CHANGED PER PA TO HOME VAC. PT HOME THIS AFTERNOON. INSTRUCTION RE HOME MKEDS/ CARE AND FOLLOW UP GIVEN TO PATIENT AND SIG OTHER. STATED UNDERSTNDING OF INSTRUCTION GIVEN. LEFT UNIT VIA WHEEL CHAIR HOME VIA PVT VEHICLE WITH SIG OTHER. NO CO'S AT TIME OF D/C.
--- NOTE | 2021-06-27 16:06 | PATH ---
[facility] [address] [place] [address] PATHOLOGY RPT PROCEDURE Name: JUAN KAHN Room #: 212-P [facility] IN M.R.#: [id number] Admission: 06/20/21 Date of : 50 Discharge: 06/26/21 Report #: [id number] Path Case #: [id number] Note [facility] Accession Number: [id number] TESTS RESULT FLAG UNITS REF RANGE LAB Clinician Provided Cytology Information No. of containers..01 Other (Miscellaneous) Source: RIGHT PLEURAL DIAGNOSIS: RIGHT PLEURAL NEGATIVE FOR MALIGNANT CELLS. REACTIVE MESOTHELIAL CELLS, HISTIOCYTES AND CHRONIC INFLAMMATION. Signed out by: 02 Olimpia Mayorga MD, Pathologist NPI- [id number] Performed by: Lilli Herron, Engineering Clerk ([facility]) Gross description: 01 11ML, RED, TURBID /LCS 06/25/2021 0302 Local FLAG LEGEND: L-Low Normal,H-High Normal,LL-Alert Low,HH-Alert High <-Panic Low,>-Panic High,A-Abnormal,AA-Critical Abnormal Performed at: [address] [place] [address] Gus Adams MD, [address] [address], Specimen Comment: REPORT SENT TO DR LEE Performed at: [address], [place], [place] [id number] MD Gus Adams MD Phone: [phone]
[2021-07-01 14:07] LABS: BODY FLUID ALBUMIN 1.9 g/dL (Not Estab.); BODY FLUID AMYLASE 15 U/L (()); BODY FLUID GLUCOSE 139 mg/dL (()); BODY FLUID LDH 384 IU/L (()); BODY FLUID PROTEIN 2.7 g/dL (())
== END 2021-06-26 14:31 | disposition home or self-care (01) | DRG 219 ==
LOC: PRE 09:41 → ICU 06-20 06:01 → TBA 06-20 06:01 → PRE 06-20 13:12 → ICU 06-20 14:48 → PRE 06-20 15:26 → 2N 06-23 12:06
PROVIDERS: Internal Medicine; Physician Assistant; ADMIT Surgery Vascular Surgery; ATTEND Surgery Vascular Surgery
PROC: 5A1221Z Performance of Cardiac Output, Continuous (ICD-10-PCS; principal; 2021-06-20)
PROC: 30233K1 Transfusion of Nonautologous Frozen Plasma into Peripheral Vein, Percutaneous Approach (ICD-10-PCS; principal; 2021-06-20)
PROC: 02100Z9 Bypass Coronary Artery, One Artery from Left Internal Mammary, Open Approach (ICD-10-PCS; principal; 2021-06-20)
PROC: 02RF08Z Replacement of Aortic Valve with Zooplastic Tissue, Open Approach (ICD-10-PCS; principal; 2021-06-20)
PROC: 021109W Bypass Coronary Artery, Two Arteries from Aorta with Autologous Venous Tissue, Open Approach (ICD-10-PCS; principal; 2021-06-20)
PROC: 06BQ4ZZ Excision of Left Saphenous Vein, Percutaneous Endoscopic Approach (ICD-10-PCS; principal; 2021-06-20)
PROC: 0W993ZZ Drainage of Right Pleural Cavity, Percutaneous Approach (ICD-10-PCS; 2021-06-24)
DX: I25.10 Atherosclerotic heart disease of native coronary artery without angina pectoris (principal); J96.01 Acute respiratory failure with hypoxia; J90 Pleural effusion, not elsewhere classified; I35.0 Nonrheumatic aortic (valve) stenosis; I10 Essential (primary) hypertension; K21.9 Gastro-esophageal reflux disease without esophagitis; I73.9 Peripheral vascular disease, unspecified; I65.23 Occlusion and stenosis of bilateral carotid arteries; E78.5 Hyperlipidemia, unspecified; Z60.2 Problems related to living alone; R53.81 Other malaise; D64.9 Anemia, unspecified; Z88.8 Allergy status to other drugs, medicaments and biological substances; Z79.82 Long term (current) use of aspirin; Z79.899 Other long term (current) drug therapy; Z95.5 Presence of coronary angioplasty implant and graft; Z85.72 Personal history of non-Hodgkin lymphomas; Z90.49 Acquired absence of other specified parts of digestive tract; Z90.81 Acquired absence of spleen
CPT/HCPCS: 10078; 10081; 47000; 47001; 47002; 47297; 47335; 47405; 48889; 50011; 50249; 50426; 50668; 50953; 51301; 52131; 52259; 52287; 53327; 53358; 53622; 54118; 56455; 56524; 56525; 56526; 56527; 56528; 56531; 56534; 56668; 56719; 56760; 56898; 57080; 57082; 57093; 57167; 57223; 58585; 58637; 58901; 58918; 62110; 62950; 65002; 65003; 65020; 65090; 65120; 65135; 83006

== ENCOUNTER → 2021-06-14 | Outpatient (CLI) | payer OTHER | LOC: LAB 06:26 | PROVIDERS: ATTEND Student in an Organized Health Care Education/Training Program | DX: Z01.812 Encounter for preprocedural laboratory examination (principal); Z20.822 Contact with and (suspected) exposure to COVID-19 ==

== ENCOUNTER → 2021-09-03 | Outpatient (CLI) | payer OTHER ==
[~2021-09-03] MED LIST changes: +FERREX 150 PLU1 EAC1 PO; +PACERONE 200 M200 M1 PO
== END ==
LOC: SJCVCIMAG 13:19
PROVIDERS: ATTEND Internal Medicine
DX: I08.1 Rheumatic disorders of both mitral and tricuspid valves (principal); R00.1 Bradycardia, unspecified; Z95.2 Presence of prosthetic heart valve; I25.10 Atherosclerotic heart disease of native coronary artery without angina pectoris; R07.9 Chest pain, unspecified; E78.5 Hyperlipidemia, unspecified; I10 Essential (primary) hypertension; Z72.89 Other problems related to lifestyle; Z88.8 Allergy status to other drugs, medicaments and biological substances; Z79.82 Long term (current) use of aspirin; Z79.899 Other long term (current) drug therapy; R94.31 Abnormal electrocardiogram [ECG] [EKG]